=== PATIENT | male | born 1950 | race African-American/Black ===

== ENCOUNTER 2016-09-13 12:16 | Emergency (ER) | payer MEDICARE, MEDICAID ==
[~2016-09-13] VITALS: Ht 172.7 cm; Wt 60.0 kg
[~2016-09-13 12:16] MED LIST: ACET-3161 PO; AMLO10TA80 PO; ASPI-1159 PO; BACL-141 PO; CARV25TA47 PO; CINA60 PO; CLOP75TA33 PO; DIPH25CA83 PO; FOLI1TAB33 PO; GABA250S4 PO; HYDR100T26 PO; ISOS30TA6 PO; LOSA100T14 PO; MINO2.5T2 PO; NIAC500T76 PO
[2016-09-13 14:30] VITALS: BP 132/65
== END 2016-09-13 15:15 | disposition home or self-care (01) ==
LOC: ER 12:46
DX: R94.31 Abnormal electrocardiogram [ECG] [EKG] (principal); I10 Essential (primary) hypertension; Z79.82 Long term (current) use of aspirin; Z99.2 Dependence on renal dialysis; Z91.013 Allergy to seafood; Z98.62 Peripheral vascular angioplasty status
CPT/HCPCS: 93005; 99283

== ENCOUNTER 2021-12-16 05:46 | Emergency (ER) | payer OTHER, MEDICAID ==
[~2021-12-16] VITALS: Ht 162.6 cm; Wt 64.0 kg
[~2021-12-16 05:46] MED LIST changes: -ASPI-1159 PO; +ASPI-1497 PO; -ISOS30TA6 PO; +ISOS30TA91 PO; -LOSA100T14 PO; +LOSA100T32 PO
[2021-12-16 10:18] LABS: HEMATOCRIT. 35.6 % (42.0-52.0); HEMOGLOBIN. 11.8 g/dL (14.0-18.0); MEAN CORPUSCULAR HEMOGLOBIN 32.3 pg (28.0-32.0); MEAN CORPUSCULAR VOLUME 97.1 fL (80.0-94.0); MEAN PLATELET VOLUME 7.2 fl (7.4-10.4); PLATELET 116 x1000/uL (130-400); RED BLOOD CELL COUNT 3.67 mill/uL (4.7-6.1); RED CELL DISTRIBUTION WIDTH 17.5 % (11.6-14.6)
[2021-12-16 10:54] LABS: PLATELET ESTIMATE SLIGHTLY DECREASED
[2021-12-16] MEDS ORDERED: ACETAMINOPHEN 325MG TABLET PO ONE (19:00)
[2021-12-16 22:05] VITALS: BP 131/87
== END 2021-12-16 22:35 | disposition home or self-care (01) ==
LOC: ER 06:09
DX: T82.838A Hemorrhage due to vascular prosthetic devices, implants and grafts, initial encounter (principal); Y84.1 Kidney dialysis as the cause of abnormal reaction of the patient, or of later complication, without mention of misadventure at the time of the procedure; Y92.9 Unspecified place or not applicable; I13.11 Hypertensive heart and chronic kidney disease without heart failure, with stage 5 chronic kidney disease, or end stage renal disease; N18.6 End stage renal disease; E78.00 Pure hypercholesterolemia, unspecified; I48.91 Unspecified atrial fibrillation; R56.9 Unspecified convulsions; Z99.2 Dependence on renal dialysis; Z79.82 Long term (current) use of aspirin; Z86.73 Personal history of transient ischemic attack (TIA), and cerebral infarction without residual deficits; Z91.013 Allergy to seafood; Z98.890 Other specified postprocedural states
CPT/HCPCS: 36415; 85025; 99283